=== PATIENT | male | born 1990 | race Caucasian/White ===

== ENCOUNTER 2025-01-22 21:53 | Emergency (ER) | payer BC, SELFPAY ==
[2025-01-22 22:00] VITALS: BP 157/93; PULSE 66; RESP 17; TEMP 36.6; O2SAT 99; BMI 27.8
--- NOTE | 2025-01-22 22:34 | DI.CT.S_ITS ---
PROCEDURE: CT KIDNEY URETER BLADDER (KUB) INDICATIONS: flank pain TECHNIQUE: Axial sections were acquired from the lung bases to the pubic symphysis. Coronal and sagittal reformats were performed. For radiation dose reduction, the following was used: automated exposure control, adjustment of mA and/or kV according to patient size. COMPARISON: None. FINDINGS: Image quality: Diagnostic. Lower Chest: No significant findings. URINARY: Right Kidney: No stones or hydronephrosis. Right Ureter: No hydroureter. Left Kidney: No stones or hydronephrosis. Left Ureter: Minimal hydroureter secondary to 2-3 mm calcification in the distal ureter approximately 1 cm from the ureterovesicular junction. Bladder: Normal wall thickness. No stones. ABDOMEN: Liver: No contour-deforming solid mass. Gallbladder: Multiple luminal stones without wall thickening. Biliary ducts: No biliary dilation. Pancreas: No ductal dilation. Spleen: Size is within normal limits. Adrenal Glands: No adrenal nodules. Stomach and Bowel: Normal colonic caliber, without significant wall thickening. Peritoneum: No abnormal intraperitoneal fluid. No free air. Ventral Wall: No hernia. Abdominal Nodes: No enlarged retroperitoneal or mesenteric lymph nodes. Scattered subcentimeter right lower quadrant lymph nodes Vessels: Aorta and inferior vena cava are normal in size. PELVIS: Pelvic Organs: Unremarkable. Pelvic Nodes: Unremarkable. Miscellaneous: No inguinal hernias are seen. Bones: Unremarkable. IMPRESSION: Minimal left hydroureter with distal 2-3 mm ureteral calcification. Dictated by: Giselle Dowling M.D. on 01/22/2025 at 23:22 Approved by: Giselle Dowling M.D. on 01/22/2025 at 23:27
[2025-01-22 22:43] LABS: Add Manual Diff / Slide Review NO; Basophils Absolute Auto 100 /uL (0-100); Basophils Percent Auto 0.5 % (0-2); Eosinophils Absolute Auto 0 /uL (0-450); Eosinophils Percent Auto 0.1 % (2-4); Hematocrit 48.2 % (41-53); Hemoglobin 16.5 g/dL (13.5-17.5); Lymphocytes Absolute Auto 1600 /uL (1100-4500); Lymphocytes Percent Auto 9.9 % (25-40); Mean Corpuscular HGB Conc 34.2 % (30-36); Mean Corpuscular Hemoglobin 28.5 PG (26-34); Mean Corpuscular Volume 83.3 fL (80-100); Monocytes Absolute Auto 700 /uL (0-900); Monocytes Percent Auto 4.6 % (3-14); Neutrophils Absolute Auto 13400 /uL (1500-7000); Neutrophils Percent Auto 84.9 % (50-75); Platelet Count 293 X10^3/uL (150-400); Red Blood Cell Count 5.79 X10^6/uL (4.5-5.9); Red Cell Distribution Width 13.3 % (11.6-14.8); White Blood Cell Count 15.8 X10^3/uL (4.5-11.0)
[2025-01-22] MEDS: ONDANSETRON 4 MG/2 ML INJ IV (22:47)
[2025-01-22] MEDS: KETOROLAC 30 MG/ML VIAL 15 MG IV (22:47)
[2025-01-22] MEDS: SODIUM CHLORIDE 0.9% 1,000 ML 1000 ML IV (22:47)
[2025-01-22 22:51] LABS: Alanine Aminotransferase 22 IU/L (<50); Albumin 5.1 g/dL (3.5-5.0); Albumin Globulin Ratio 1.6 (1.0-2.8); Alkaline Phosphatase 124 U/L (38-126); Aspartate Aminotransferase 28 IU/L (17-59); Bilirubin Total 0.7 mg/dL (0.2-1.3); Blood Urea Nitrogen 16 mg/dL (9-20); Calcium 10.5 mg/dL (8.4-10.2); Carbon Dioxide 20 mmol/L (22-32); Chloride 105 mmol/L (98-107); Estimated Glomerular Filt Rate > 60 mL/min (>60); Globulin 3.2 g/dL (1.7-4.1); Glucose 120 mg/dL (70-100); HEMOLYSIS < 15 (0-50); Lipase 134 U/L (23-300); Potassium 3.6 mmol/L (3.4-5.1); Sodium 140 mmol/L (137-145); Total Protein 8.3 g/dL (6.3-8.2)
[2025-01-22 22:56] LABS: Bacteria Urine None Seen; Culture Indicated Urine Cult Not Indicated; RBC Urine 30-100/HPF (0-5/HPF); Squamous Epithelial Cell Urine 0-1 /HPF (0-5/HPF); Urine Volume 10mL (spun); WBC Urine None Seen (0-5/HPF)
[2025-01-22] MEDS: MORPHINE 4 MG/ML INJ IV (23:17)
--- NOTE | 2025-01-22 23:49 | ED_ITS ---
HPI - Abdominal Pain General Chief Complaint: Abdominal Pain Stated Complaint: abd pain Time Seen by Provider: 01/22/25 23:49 Source: patient Mode of arrival: Ambulatory History of Present Illness HPI narrative: 34-year-old male with a past medical history of kidney stones comes into the ED from home for evaluation of left-sided kidney pain, states it started yesterday felt like he just ?sprained his back however he states that at around 6:00 p.m. today he had worsening pain similar to when he had kidney stones, he states it is last 1 was in 2018. Does not have a current urologist. Does have nausea and vomiting associated with the symptoms, but denies any other symptoms such as headache visual disturbances chest pain shortness breath or any other GI/ symptoms time. States that in the past he has had 2 kidney stones and he has been able to pass them by himself at home. Related Data Previous Rx's Medication Instructions Recorded cephalexin 500 mg capsule 500 mg PO Q8H 7 days #21 caps 01/23/25 tamsulosin 0.4 mg capsule (Flomax) 0.4 mg PO DAILY 1 week #7 caps 01/23/25 Allergies Allergy/AdvReac Type Severity Reaction Status Date / Time No Known Drug Allergies Allergy Verified 01/22/25 22:04 Review of Systems Review of Systems Narrative: General: Denies fever, chills, weight loss HEENT: Denies headache, eye drainage, eye irritation, head trauma, sore throat, voice change Cardiovascular: Denies any chest pain, palpitations, tachycardia Respiratory: Denies any shortness of breath, cough, wheeze, stridor GI/: Positive left-sided flank pain, nausea vomiting Denies any abdominal pain, diarrhea, bright red blood per rectum, melanotic stools, urinary frequency, urinary retention, dysuria, hematuria MSK: Denies any joint pain, muscle pains, swelling Skin: Denies any rashes, lesions, discoloration Neuro: Denies any headache, lightheadedness, dizziness, fainting, weakness Psych: Denies SI/HI Patient History Smoking Status: Never smoker Exam Narrative Exam Narrative: General: Cooperative, well-developed, not in acute distress HEENT: Normocephalic, atraumatic, PERRLA, normal sclera, eyelids normal Neck: Active full range of motion, atraumatic Chest: Normal to inspection, negative crepitus, no overlying erythema ecchymosis Respiratory: Normal respiratory effort, not in acute respiratory distress, clear to auscultation bilaterally negative cough, wheeze, tachypnea, rhonchi, rales Cardiology: Regular rate rhythm negative gallop, murmur, rubs GI/: Positive left CVA tenderness, No tenderness to palpation, soft, non rigid, normal to inspection, exam deferred MSK: Full active range of motion in all 4 extremities, atraumatic, no tenderness to palpation of any bony prominences Skin: No rashes or lesions noted Neuro: Alert awake oriented x3, moves all 4 extremities spontaneously, cranial nerves intact, able to answer all questions appropriately follows commands appropriately Psych: Cooperative, negative suicidal or homicidal ideations Initial Vital Signs Initial Vital Signs: Vital Signs Temperature 98 F 01/22/25 22:00 Pulse Rate 66 01/22/25 22:00 Respiratory Rate 17 01/22/25 22:00 Blood Pressure 157/93 H 01/22/25 22:00 Pulse Oximetry 99 01/22/25 22:00 Oxygen Delivery Method Room Air 01/22/25 22:00 Course Orders Ordered: ED Orders 01/22/25 22:20 Urine Microscopic Stat 01/22/25 22:33 Complete Blood Count AUTO DIFF Stat Comprehensive Metabolic Panel Stat Lipase Stat 01/22/25 22:34 CT kidney ureter bladder (KUB) Stat Ondansetron HCl (Ondansetron 4 Mg/2 Ml Inj) 4 mg IV NOW PRN PRN Reason: Nausea And Vomiting Last Admin: 01/22/25 22:47 Dose: 4 mg Documented By: ZOË Ondansetron HCl (Ondansetron 4 Mg Odt) 4 mg PO NOW PRN PRN Reason: Nausea And Vomiting Discontinued Medications Sodium Chloride (Normal Saline 0.9%) 1,000 mls @ 1,000 mls/hr IV BOLUS ONE Stop: 01/22/25 23:34 Last Admin: 01/22/25 22:47 Dose: 1,000 mls/hr Documented By: ZOË Ketorolac Tromethamine (Ketorolac 30 Mg/Ml Vial) 15 mg IV NOW ONE Stop: 01/22/25 22:36 Last Admin: 01/22/25 22:47 Dose: 15 mg Documented By: ZOË Morphine Sulfate (Morphine 4 Mg/Ml Inj) 4 mg IV NOW ONE Stop: 01/22/25 23:11 Last Admin: 01/22/25 23:17 Dose: 4 mg Documented By: ZOË Vital Signs Vital signs: Vital Signs - 8 hr 01/22/25 22:00 Temperature 98 F Pulse Rate 66 Respiratory Rate 17 Blood Pressure 157/93 H Pulse Oximetry 99 Oxygen Delivery Method Room Air MDM - Abdominal Pain Differential Diagnosis Differential diagnosis: Likely other (Urolithiasis, nephrolithiasis, pyelonephritis, urinary tract infection) Lab Data 01/22/25 22:33 01/22/25 22:33 Labs: Lab Results 01/22/25 01/22/25 Range/Units 22:20 22:33 WBC 15.8 H (4.5-11.0) X10^3/uL RBC 5.79 (4.5-5.9) X10^6/uL Hgb 16.5 (13.5-17.5) g/dL Hct 48.2 (41-53) % MCV 83.3 (80-100) fL MCH 28.5 (26-34) PG MCHC 34.2 (30-36) % RDW 13.3 (11.6-14.8) % Plt Count 293 (150-400) X10^3/uL Neut % (Auto) 84.9 H (50-75) % Lymph % (Auto) 9.9 L (25-40) % [place] % (Auto) 4.6 (3-14) % Eos % (Auto) 0.1 L (2-4) % Baso % (Auto) 0.5 (0-2) % Neut # (Auto) 83057 H (1218-7809) /uL Lymph # (Auto) 1600 (5198-4760) /uL [place] # (Auto) 700 (0-900) /uL Eos # (Auto) 0 (0-450) /uL Baso # (Auto) 100 (0-100) /uL Sodium 140 (137-145) mmol/L Potassium 3.6 (3.4-5.1) mmol/L Chloride 105 (98-107) mmol/L Carbon Dioxide 20 L (22-32) mmol/L BUN 16 (9-20) mg/dL Creatinine 1.00 (0.66-1.25) mg/dL Estimated GFR > 60 (>60) mL/min BUN/Creatinine Ratio 16.0 (6-22) Glucose 120 H (70-100) mg/dL Calcium 10.5 H (8.4-10.2) mg/dL Total Bilirubin 0.7 (0.2-1.3) mg/dL AST 28 (17-59) IU/L ALT 22 (<50) IU/L Alkaline Phosphatase 124 (38-126) U/L Total Protein 8.3 H (6.3-8.2) g/dL Albumin 5.1 H (3.5-5.0) g/dL Globulin 3.2 (1.7-4.1) g/dL Albumin/Globulin Ratio 1.6 (1.0-2.8) Lipase 134 (23-300) U/L Urine RBC 30-100/hpf H (0-5/HPF) Urine WBC None seen (0-5/HPF) Ur Squamous Epith Cells 0-1 /hpf (0-5/HPF) Urine Bacteria None seen (None) Ur Culture Indicated? Cult not indicated Vol Urine Centrifuged 10ml (spun) Point of care testing: Urine Dip Bedside Urine Glucose Negative Bedside Urine Bilirubin - Negative Bedside Urine Ketone + 15 Urine Specific [place] 1.015 Bedside Urine Occult Blood +++ Bedside Urine pH 7.5 Bedside Urine Protein +/- 15 Bedside Urine Urobilinogen - Negative Bedside Urine Nitrite - Negative Bedside Urine Leukocytes - Negative Esterase Imaging Data CT scan - abdomen/pelvis: Radiologist's Impression: [place] [address] CT Scan Report Signed Patient: Merrick Ross MR#: [id number] : 1990 Acct:[id number] Age/Sex: 34 / M Date of Service: 01/22/25 Loc: ED Accession Number: [id number] Procedure: CT kidney ureter bladder (KUB) Ordering Provider: José Miguel Pozo D.O. PROCEDURE: CT KIDNEY URETER BLADDER (KUB) INDICATIONS: flank pain TECHNIQUE: Axial sections were acquired from the lung bases to the pubic symphysis. Coronal and sagittal reformats were performed. For radiation dose reduction, the following was used: automated exposure control, adjustment of mA and/or kV according to patient size. COMPARISON: None. FINDINGS: Image quality: Diagnostic. Lower Chest: No significant findings. URINARY: Right Kidney: No stones or hydronephrosis. Right Ureter: No hydroureter. Left Kidney: No stones or hydronephrosis. Left Ureter: Minimal hydroureter secondary to 2-3 mm calcification in the distal ureter approximately 1 cm from the ureterovesicular junction. Bladder: Normal wall thickness. No stones. ABDOMEN: Liver: No contour-deforming solid mass. Gallbladder: Multiple luminal stones without wall thickening. Biliary ducts: No biliary dilation. Pancreas: No ductal dilation. Spleen: Size is within normal limits. Adrenal Glands: No adrenal nodules. Stomach and Bowel: Normal colonic caliber, without significant wall thickening. Peritoneum: No abnormal intraperitoneal fluid. No free air. Ventral Wall: No hernia. Abdominal Nodes: No enlarged retroperitoneal or mesenteric lymph nodes. Scattered subcentimeter right lower quadrant lymph nodes Vessels: Aorta and inferior vena cava are normal in size. PELVIS: Pelvic Organs: Unremarkable. Pelvic Nodes: Unremarkable. Miscellaneous: No inguinal hernias are seen. Bones: Unremarkable. IMPRESSION: Minimal left hydroureter with distal 2-3 mm ureteral calcification. MDM Narrative Medical decision making narrative: 34-year-old male with a past medical history of kidney stones presents to the emergency department for left-sided flank pain. States it started yesterday got worse at around 6:00 p.m. today. States that it is similar to when he had kidney stones in the past in 2018, patient also having nausea and vomiting secondary to the symptoms. Had significant improvement after administration of fluids antinausea meds and pain meds here. Patient did noted to have leukocytosis of 15.7, however patient afebrile, urinalysis not consistent with acute urinary tract infection most likely elevated secondary to patient with nausea vomiting. CT scan showing a distal 2-3 mm ureteral stone, mild hydronephrosis, patient with normal creatinine and BUN. Urinalysis only showing RBCs. Patient able to tolerate p.o. liquids and solids here. He will be sent home with medications to pass this at home and instructed to follow up with urology in outpatient setting. He was given strict return precautions he verbalized understanding of this and agrees to being discharged home with outpatient follow up Discharge Plan Departure Patient Disposition: Home Clinical Impression: Urolithiasis Instructions: DI for Kidney Stones Activity Restrictions/Additional Instructions: Please follow up with Urology and your primary care doctor Please read the discharge instructions sheet carefully and bring all papers to all doctor follow-up visits, as it may contain information that your doctor may want to see. Disease processes change and evolve, if your symptoms worsen or if you develop any new symptoms that are concerning to you please return for evaluation. Your evaluation today does not show any evidence of any life- threatening/serious illnesses requiring admission to the hospital or surgery. Please follow-up with your doctor for re-evaluation in approximately 1 day. Seek immediate medical attention for any worrisome symptoms. *If you do not have a primary care provider please contact the [facility] Resource line at [phone]. They will ask some questions about your medical history and help get you set up with a doctor in the community. Prescriptions: New cephalexin 500 mg capsule 500 mg PO Q8H 7 Days Qty: 21 0RF tamsulosin [Flomax] 0.4 mg capsule 0.4 mg PO DAILY 7 Days Qty: 7 0RF Referrals: Miscellaneous,Doctor, MD [Primary Care Provider] - Stand Alone Forms: Patient Portal/API/Survey
[2025-01-22] MEDS: TAMSULOSIN 0.4 MG CAPSULE PO (23:59)
[2025-01-23] MEDS: cephALEXin 250 MG CAPSULE 500 MG PO
[2025-01-23] MEDS: OXYCODONE/APAP 5/325 PREPACK 1 BOTTLE MISC (00:01)
[2025-01-23] MEDS: ONDANSETRON 4 MG ODT PREPACK 1 BOTTLE MISC (00:01)
[2025-01-23 00:13] VITALS: BP 130/79; PULSE 105; RESP 17; O2SAT 99
== END 2025-01-23 00:14 | disposition home or self-care (01) ==
PROVIDERS: Emergency Provider Student in an Organized Health Care Education/Training Program
DX: N13.2 Hydronephrosis with renal and ureteral calculous obstruction (principal); Z87.442 Personal history of urinary calculi
CPT/HCPCS: 36415; 74176; 80053; 81003; 81015; 83690; 85025; 96361; 96374; 96375; 99284; J1885; J2270; J2405